=== PATIENT | female | born 1995 ===

== ENCOUNTER 2017-03-14 23:23 | Emergency (ER) | payer OTHER ==
[2017-03-14 23:49] VITALS: BP 123/60; PULSE 109; RESP 16; TEMP 98.8; O2SAT 100
--- NOTE | 2017-03-15 00:09 | ED PDOC ---
HPI: Abdomen Time Seen by Provider: 03/14/17 23:52 Chief Complaint (Nursing): Abdominal Pain Chief Complaint (Provider): Abdominal Pain History Per: Patient Additional Complaint(s): 21 yo female, no PMH, presents to ED approximately 9 weeks with complaints of severe lower abdominal cramping x 2 hours, no vaginal bleeding. . Pt has not taken anything for pain thus far. Past Medical History Reviewed: Nursing Documentation, Vital Signs Vital Signs: Last Vital Signs Temp 98.8 F 03/14/17 23:46 Pulse 109 H 03/14/17 23:46 Resp 16 03/14/17 23:46 BP 123/60 03/14/17 23:46 Pulse Ox 100 03/15/17 03:30 - Surgical History Surgical History: No Surg Hx - Family History Family History: States: No Known Family Hx - Living Arrangements Living Arrangements: With Family - Social History Current smoker - smoking cessation education provided: No Alcohol: None Drugs: Denies - Allergies Allergies/Adverse Reactions: Allergies Allergy/AdvReac Type Severity Reaction Status Date / Time No Known Allergies Allergy Verified 03/14/17 23:46 Review of Systems ROS Statement: Except As Marked, All Systems Reviewed And Found Negative Gastrointestinal: Positive for: Abdominal Pain Physical Exam - Reviewed Nursing Documentation Reviewed: Yes Vital Signs Reviewed: Yes - Physical Exam Appears: Positive for: Well, Non-toxic, No Acute Distress Head Exam: Positive for: ATRAUMATIC, NORMAL INSPECTION, NORMOCEPHALIC Skin: Positive for: Normal Color, Warm, DRY Eye Exam: Positive for: EOMI, Normal appearance, PERRL ENT: Positive for: Normal ENT Inspection Neck: Positive for: Normal, Painless ROM Cardiovascular/Chest: Positive for: Regular Rate, Rhythm Respiratory: Positive for: CNT, Normal Breath Sounds Gastrointestinal/Abdominal: Positive for: Bowel Sounds, Soft, Tenderness Back: Positive for: Normal Inspection Extremity: Positive for: Normal ROM Neurologic/Psych: Positive for: Alert, Oriented - Laboratory Results Result Diagrams: 03/15/17 00:23 - ECG O2 Sat by Pulse Oximetry: 100 Medical Decision Making Medical Decision Making: Medicated with Acetaminophen PO CBC resulted 9.1 UA WNL Beta 11386 IMPRESSION: 10 week, 0 day intrauterine with heart motion. The yolk sac is mildly enlarged, which could be a poor prognostic indicator, indicating increased risk of miscarriage. Followup is recommended. Pt educated on results and demonstrated full understanding. Admits to feeling better on re-eval. Advised to follow up with OB, return to ED with any concerns Signs and symptoms of miscarriage discussed at length Disposition - Clinical Impression Clinical Impression: Threatened miscarriage - Patient ED Disposition Is Patient to be Admitted: No - Disposition Disposition: Routine/Home Disposition Time: 04:16 Condition: STABLE Additional Instructions: Follow up with OB in 2 days! Instructions: Threatened Miscarriage (ED) Print Language: MEXICAN - POAndre Present On Arrival: None
[2017-03-15 01:02] LABS: BASO % 0.4 % (0.0-2.0); EOS % 0.4 % (0.0-4.0); HEMATOCRIT 29.3 % (34.0-47.0); LYMPH # 1.3 K/uL (1.0-4.3); LYMPH % 13.4 % (20.0-40.0); MEAN CELL VOLUME 64.8 fl (81.0-99.0); MEAN CORPUSCULAR HEMOGLOBIN 20.1 pg (27.0-31.0); MEAN CORPUSCULAR HGB CONC 30.9 g/dL (33.0-37.0); MEAN PLATELET VOLUME 9.3 fl (7.2-11.7); MONO # 0.8 K/uL (0.0-0.8); MONO % 7.5 % (0.0-10.0); NEUT # 7.8 K/uL (1.8-7.0); NEUT % 78.3 % (50.0-75.0); RED CELL DISTRIBUTION WIDTH 22.5 % (11.5-14.5)
[2017-03-15 01:03] LABS: RBC URINE 4 /hpf (0-3); URINE BILIRUBIN NEGATIVE (NEGATIVE); URINE BLOOD NEGATIVE (NEGATIVE); URINE COLOR YELLOW (YELLOW); URINE GLUCOSE (UA) NEG (Normal); URINE KETONE TRACE mg/dL (NEGATIVE); URINE LEUKOCYTE ESTERASE NEG Leu/uL (Negative); URINE PROTEIN NEGATIVE (NEGATIVE); URINE UROBILINOGEN 0.2-1.0 mg/dL (0.2-1.0); WBC URINE < 1 /hpf (0-5)
[2017-03-15 01:58] LABS: RBC URINE 2 /hpf (0-3); URINE BILIRUBIN NEGATIVE (NEGATIVE); URINE BLOOD NEGATIVE (NEGATIVE); URINE COLOR YELLOW (YELLOW); URINE GLUCOSE (UA) NEG (Normal); URINE KETONE TRACE mg/dL (NEGATIVE); URINE LEUKOCYTE ESTERASE NEG Leu/uL (Negative); URINE PROTEIN NEGATIVE (NEGATIVE); URINE UROBILINOGEN 0.2-1.0 mg/dL (0.2-1.0); WBC URINE 1 /hpf (0-5)
--- NOTE | 2017-03-15 03:19 | US ---
EXAM: US First Trimester, Transabdominal CLINICAL HISTORY: 21 years old, female; Pain; Other: Pelvic pain; Gestational age or lmp: Lmp 12-30-2016; ; Additional info: Severe pain TECHNIQUE: Real-time transabdominal obstetrical ultrasound of the maternal pelvis and a first trimester with image documentation. EXAM DATE/TIME: 03/15/2017 12:08 AM COMPARISON: No relevant prior studies available. FINDINGS: Uterus: Measures 8.9 x 5.4 x 8.1 cm. Single intrauterine gestation identified. pole and yolk sac are seen. Estimated gestational age is 10 weeks, 0 days, based on the crown rump length. heart motion visualized, at 158 beats per minute. The yolk sac measures 8 mm in diameter (normal less than 6 mm). Cervix appears closed, and measures 3.5 cm in length. Right ovary: Within normal limits in appearance. Measures 3.2 x 2.1 cm. Flow seen in the right ovary on Doppler imaging, with no evidence of torsion. Left ovary: Within normal limits in appearance. Measures 2.6 x 1.7 x 1.7 cm. Flow seen in the left ovary on color and Doppler imaging, with no evidence of torsion. Cul de sac: No free fluid. IMPRESSION: 10 week, 0 day intrauterine with heart motion. The yolk sac is mildly enlarged, which could be a poor prognostic indicator, indicating increased risk of miscarriage. Followup is recommended. See above for remaining findings.
== END 2017-03-15 03:45 | disposition home or self-care (01) ==
LOC: H.ER 23:23
DX: O20.0 Threatened abortion (principal)

== ENCOUNTER 2017-05-05 00:31 | Emergency (ER) | payer OTHER ==
[2017-05-05 00:39] VITALS: BP 144/71; PULSE 94; RESP 18; TEMP 98.7; O2SAT 100
[2017-05-05] MEDS ORDERED: Sodium Chloride 0.9% 1,000 ML IV STA (01:12)
--- NOTE | 2017-05-05 01:48 | ED PDOC ---
HPI: Female Pain Time Seen by Provider: 05/05/17 00:59 Chief Complaint (Nursing): Headache Chief Complaint (Provider): Headache History Per: Patient History/Exam Limitations: no limitations Onset/Duration Of Symptoms: Days (One) Current Symptoms Are (Timing): Still Present Severity: Mild Associated Symptoms: Nausea, Vomiting, Diarrhea. denies: Fever, Chest Pain Additional Complaint(s): 21 y/o female presenting to the ED with headache, nausea, vomiting and diarrhea present for one day. Patient reports being 17 weeks currently ( 3, Para 0) and states she has been having left-sided headaches, multiple episodes of vomiting (non-bilious and non-bloody) and diarrhea (non-bloody). Patient denies thunderclap or retro-orbital and has no fever, cough, neck pain, shortness of breath associated and also denies any vaginal bleeding. Patient's past surgical history includes a tonsillectomy and appendectomy. : 3 Para: 0 Miscarriage: 0 Past Medical History Reviewed: Historical Data, Nursing Documentation, Vital Signs Vital Signs: Last Vital Signs Temp 98.7 F 05/05/17 00:33 Pulse 94 H 05/05/17 00:33 Resp 18 05/05/17 00:33 BP 144/71 05/05/17 00:33 Pulse Ox 100 05/05/17 00:33 - Surgical History Surgical History: Appendectomy, Tonsillectomy - Family History Family History: States: No Known Family Hx - Social History Current smoker - smoking cessation education provided: No Alcohol: None Drugs: Denies - Allergies Allergies/Adverse Reactions: Allergies Allergy/AdvReac Type Severity Reaction Status Date / Time No Known Allergies Allergy Verified 03/14/17 23:46 Review of Systems ROS Statement: Except As Marked, All Systems Reviewed And Found Negative Constitutional: Negative for: Fever Respiratory: Negative for: Cough, Shortness of Breath Gastrointestinal: Positive for: Nausea, Vomiting ((-)Non-Bilious), Diarrhea. Negative for: Hematochezia, Hematemesis Genitourinary Female: Negative for: Hematuria, Vaginal Bleeding Musculoskeletal: Negative for: Neck Pain Neurological: Positive for: Headache Physical Exam - Reviewed Nursing Documentation Reviewed: Yes Vital Signs Reviewed: Yes - Physical Exam Appears: Positive for: Non-toxic, No Acute Distress Head Exam: Positive for: ATRAUMATIC, NORMAL INSPECTION, NORMOCEPHALIC Skin: Positive for: Normal Color, Warm, Dry ENT: Positive for: Other ((+)Dry mucus membranes) Neck: Positive for: Normal, Painless ROM, Supple Cardiovascular/Chest: Positive for: Regular Rate, Rhythm. Negative for: Murmur Respiratory: Positive for: Normal Breath Sounds. Negative for: Respiratory Distress Extremity: Positive for: Normal ROM Neurologic/Psych: Positive for: Alert, Oriented. Negative for: Motor/Sensory Deficits - Laboratory Results Result Diagrams: 05/05/17 02:02 05/05/17 01:17 - ECG O2 Sat by Pulse Oximetry: 100 (RA) Pulse Ox Interpretation: Normal Medical Decision Making Medical Decision Making: Time: 011 Initial impression: Headache, nausea, vomiting and diarrhea occurring during second trimester . Initial plan: --Beta-HCG, QUANTITATIVE --CMP --LIPASE --ED URINE DIPSTICK --CBC --METOCLOPRAMIDE 10MG IVPB --SODIUM CHLORIDE 1,000ML IV 1,000 MLS/HR --HEPLOCK INSERTION IV --URINALYSIS --0300: Re-Evaluation/Discharge instructions Patient labs reviewed and no clinically significant abnormalities. Patient reports market improvement in symptoms and is stable for discharge. Patient advised to take Tylenol, remain well hydrated and follow up with PCP in two days. Discharge Instructions: Re-evaluation. Patient feels better. Discussed results and plan with patient who expresses understanding. Counseling was provided regarding the diagnosis and prognosis. All questions answered and there is agreement with the plan to discharge home with instructions. Patient stable for discharge. Return if symptoms persist or worsen. Diagnosis: Headache and Gastroenteritis Scribe Attestation: Documented by Sabrina Prado, acting as a scribe for David Browning MD. Scribe Attestation: All medical record entries made by the Scribe were at my direction and personally dictated by me. I have reviewed the chart and agree that the record accurately reflects my personal performance of the history, physical exam, medical decision making, and the department course for this patient. I have also personally directed, reviewed, and agree with the discharge instructions and disposition. Disposition - Clinical Impression Clinical Impression: Headache, Gastroenteritis - Patient ED Disposition Is Patient to be Admitted: No - Disposition Disposition: Routine/Home Disposition Time: 03:00 Condition: STABLE Additional Instructions: Continue el Tylenol para dolor de jasiel Sigue con tu medico en 2 celestin Instructions: Gastroenteritis (ED), Acute Headache (ED) Forms: [facility] (Turkish) Print Language: SINHALA
[2017-05-05 02:01] LABS: SQUAMOUS EPITHIAL 4 /hpf (0-5); URINE BACTERIA RARE (<OCC); URINE BILIRUBIN NEGATIVE (NEGATIVE); URINE CLARITY SLIGHTY-CLOUDY (Clear); URINE COLOR YELLOW (YELLOW); URINE GLUCOSE (UA) NEG (Normal); URINE LEUKOCYTE ESTERASE NEG Leu/uL (Negative); URINE NITRATE NEGATIVE (NEGATIVE); URINE PROTEIN NEGATIVE (NEGATIVE)
[2017-05-05 02:05] LABS: BASO % 0.2 % (0.0-2.0); EOS % 0.1 % (0.0-4.0); HEMOGLOBIN 11.1 g/dL (12.0-16.0); LYMPH # 1.7 K/uL (1.0-4.3); LYMPH % 15.1 % (20.0-40.0); MEAN CORPUSCULAR HEMOGLOBIN 24.4 pg (27.0-31.0); MEAN CORPUSCULAR HGB CONC 32.5 g/dL (33.0-37.0); MEAN PLATELET VOLUME 9.7 fl (7.2-11.7); MONO # 0.5 K/uL (0.0-0.8); MONO % 4.5 % (0.0-10.0); NEUT # 8.8 K/uL (1.8-7.0); NEUT % 80.1 % (50.0-75.0); RBC 4.54 Mil/uL (3.80-5.20); RED CELL DISTRIBUTION WIDTH 27.9 % (11.5-14.5)
[2017-05-05 02:14] LABS: ALB/GLOB RATIO 1.1 (1.0-2.1); ALBUMIN 3.9 g/dL (3.5-5.0); ALT/SGPT 28 U/L (9-52); AST/SGOT 19 U/L (14-36); BLOOD UREA NITROGEN 7 mg/dl (7-17); CALCIUM 9.3 mg/dL (8.4-10.2); GFR AFRICAN-AMERICAN > 60; GFR NON-AFRICAN AMERICAN > 60
[2017-05-05 02:17] LABS: URINE BLOOD TRACE (NEGATIVE)
== END 2017-05-05 03:35 | disposition home or self-care (01) ==
LOC: H.ER 00:31
DX: K52.9 Noninfective gastroenteritis and colitis, unspecified (principal); R51 Headache; Z33.1 Pregnant state, incidental